=== PATIENT | female | born 1965 | race Caucasian/White ===

== ENCOUNTER 2022-12-13 18:49 | Inpatient (IN) | payer MEDICAID ==
[~2022-12-13] VITALS: Ht 162.6 cm; Wt 44.5 kg
[2022-12-13] MEDS ORDERED: ALBUTEROL (0.083%) 2.5MG/3ML NEB HHN STA (18:57)
[2022-12-13] MEDS ORDERED: IPRATROPIUM BROMIDE (0.02%) 0.5MG/2.5ML NEB HHN STA (18:57)
[2022-12-13] MEDS ORDERED: SODIUM CHLORIDE 0.9% 1,000 ML IV ONE ×2 (19:00→19:15)
[2022-12-13] MEDS ORDERED: NOREPINEPHRINE 8MG/250ML PMX 250 ML IV ONE (19:45)
[2022-12-13] MEDS: NOREPINEPHRINE 8 MG in DEXT 5% WATER 242 ML IV NR (20:08)
[2022-12-13] MEDS ORDERED: LORAZEPAM 2MG/ML CPJ IV ONE (20:15)
[2022-12-13] MEDS ORDERED: PHENYLEPHRINE 100 MG in DEXT 5% WATER 240 ML IV STA ×2 (21:58→22:07)
[2022-12-13] MEDS ORDERED: VANCOMYCIN 1G PREMIX 200 ML IV SCH (22:00)
[2022-12-13] MEDS ORDERED: CEFTRIAXONE 1 G PREMIX 50 ML IV ONE (22:00)
[2022-12-13 23:24] LABS: CHLORIDE 112 mEq/L (98-107)
[2022-12-13 23:28] LABS: HEMATOCRIT. 35.8 % (36.0-48.0); HEMOGLOBIN. 11.4 g/dL (12.0-16.0); MEAN CORPUSCULAR HEMOGLOBIN 31.1 pg (28.0-32.0); MEAN CORPUSCULAR VOLUME 97.7 fL (81.0-99.0); MEAN PLATELET VOLUME 9.1 fl (7.4-10.4); PLATELET 312 x1000/uL (130-400); RED BLOOD CELL COUNT 3.66 mill/uL (4.2-5.4); RED CELL DISTRIBUTION WIDTH 14.3 % (11.6-14.6)
[2022-12-14] VITALS (57 sets, daily range): BP systolic 49–152; BP diastolic 20–102
[2022-12-14 00:02] LABS: HCG SCREEN NEGATIVE
[2022-12-14 02:09] LABS: PLATELET ESTIMATE NORMAL
[2022-12-14] MEDS ORDERED: IOHEXOL-300 100 ML BOTTLE ONE (03:31)
[2022-12-14] MEDS ORDERED: DOPAMINE 800MG/500ML PREMIX 500 ML IV PRN (05:00)
[2022-12-14] MEDS ORDERED: MIDAZOLAM HCL 100 MG in DEXT 5% WATER 80 ML IV NR (05:15)
[2022-12-14] MEDS ORDERED: SUCCINYLCHOLINE CHLORIDE 200MG/10ML IV NR (05:15)
[2022-12-14] MEDS ORDERED: EPINEPHRINE 0.1MG/ML (1:10,000) 10ML SYR IV NR (05:15)
[2022-12-14] MEDS ORDERED: ETOMIDATE 2MG/ML 10ML VIAL IV NR (05:15)
[2022-12-14] MEDS ORDERED: SODIUM BICARBONATE 8.4% 1 MEQ/ML 50ML SYR IV ONE ×2 (05:29→10:15)
[2022-12-14] MEDS ORDERED: SODIUM CHLORIDE 0.9% 1,000 ML IV NR (06:00)
[2022-12-14 06:18] LABS: BG BASE EXCESS -2.3 mmol/L (-2.0-2.0); BG CARBOXYHEMOGLOBIN 0.4 % (0.5-1.5); BG DEOXYHEMOGLOBIN 19.8 % (0.0-5.0); BG FRACTION INSPIRED OXYGEN 60; BG HCO3 ACT 22.8 mmol/L (22.0-26.0); BG METHEMOGLOBIN 0.6 % (0.0-1.5); BG OXYHEMOGLOBIN 79.2 % (94.0-97.0); BG PCO2 40.5 mmHg (35.0-45.0); BG PH 7.368 (7.350-7.450); BG PO2 45.4 mmHg (75.0-100.0); BG SAMPLE SITE LEFT FEMORAL; BG TOTAL HEMOGLOBIN 12.8 g/dL (12.0-18.0); BG VENT MODE VENT - AC
[2022-12-14] MEDS ORDERED: ACETAMINOPHEN 650MG/20.3ML UDC GT PRN ×2 (07:00)
[2022-12-14] MEDS ORDERED: ACETAMINOPHEN 325MG TABLET PO PRN ×2 (07:00)
[2022-12-14] MEDS ORDERED: CLONIDINE 0.1MG TABLET PO PRN (07:00)
[2022-12-14] MEDS ORDERED: IPRATROPIUM/ALBUTEROL 0.5-3(2.5)MG/3ML NEB HHN PRN (07:00)
[2022-12-14] MEDS ORDERED: ONDANSETRON HCL 4MG/2ML INJ IV PRN ×2 (07:00→16:30)
[2022-12-14 07:23] LABS: HEMOGLOBIN. 12.1 g/dL (12.0-16.0); MEAN CORPUSCULAR HEMOGLOBIN 31.3 pg (28.0-32.0); MEAN CORPUSCULAR VOLUME 98.1 fL (81.0-99.0); MEAN PLATELET VOLUME 9.2 fl (7.4-10.4); PLATELET 284 x1000/uL (130-400); RED BLOOD CELL COUNT 3.88 mill/uL (4.2-5.4); RED CELL DISTRIBUTION WIDTH 14.1 % (11.6-14.6)
[2022-12-14] MEDS ORDERED: SUCCINYLCHOLINE CHLORIDE 200MG/10ML IV ONE (07:27)
[2022-12-14] MEDS ORDERED: ETOMIDATE 2MG/ML 10ML VIAL IV ONE (07:27)
[2022-12-14 07:33] LABS: CHLORIDE 108 mEq/L (98-107)
[2022-12-14 07:45] LABS: PHOSPHORUS 7.4 mg/dL (2.5-4.9)
[2022-12-14] MEDS ORDERED: MIDAZOLAM HCL 100 MG in SODIUM CHLORIDE 0.9% 80 ML IV PRN (08:30)
[2022-12-14] MEDS ORDERED: FENTANYL CITRATE/PF 2,500 MCG in SODIUM CHLORIDE 0.9% 200 ML IV PRN (08:30)
[2022-12-14 09:05] LABS: BG CARBOXYHEMOGLOBIN 0.7 % (0.5-1.5); BG DEOXYHEMOGLOBIN 5.2 % (0.0-5.0); BG FRACTION INSPIRED OXYGEN 100; BG HCO3 ACT 12.6 mmol/L (22.0-26.0); BG METHEMOGLOBIN 0.7 % (0.0-1.5); BG OXYGEN SATURATION 94.7 % (92.0-98.5); BG OXYHEMOGLOBIN 93.4 % (94.0-97.0); BG PCO2 23.4 mmHg (35.0-45.0); BG PO2 70.8 mmHg (75.0-100.0); BG SAMPLE SITE LEFT FEMORAL; BG TOTAL HEMOGLOBIN 13.3 g/dL (12.0-18.0); BG VENT MODE VENT - AC
[2022-12-14] MEDS: NOREPINEPHRINE 8 MG in DEXT 5% WATER 242 ML IV NR ×2 (09:25→11:43)
[2022-12-14] MEDS: VASOPRESSIN 20 UNIT in SODIUM CHLORIDE 0.9% 99 ML IV PRN ×2 (10:39→18:18)
[2022-12-14] MEDS: DOPAMINE 400MG/250ML PREMIX 250 ML IV PRN (10:42)
[2022-12-14] MEDS ORDERED: SODIUM CHLORIDE 0.9% 1,000 ML IV ONE (11:00)
[2022-12-14 11:31] LABS: PLATELET ESTIMATE NORMAL
[2022-12-14] MEDS: SODIUM BICARBONATE 100 MEQ in SODIUM CHLORIDE 0.45% 1,000 ML IV SCH ×2 (11:46→23:33)
[2022-12-14] MEDS: PIPERACILLIN/TAZOBACTAM 3.375 G in DEXTROSE 5% WATER 50 ML IV SCH ×3 (11:59→22:17)
[2022-12-14] MEDS ORDERED: DIATR MEGLU/DIATRIZOATE SOLN 120ML ONE (12:19)
[2022-12-14] MEDS: PHENYLEPHRINE 100 MG in DEXT 5% WATER 240 ML IV PRN ×2 (12:48→23:35)
[2022-12-14 13:25] LABS: INR 1.3; PROTHROMBIN TIME 13.5 sec (9.6-11.0)
[2022-12-14] MEDS ORDERED: SIMETHICONE 40 MG/0.6 ML 15ML ONE (13:48)
[2022-12-14] MEDS ORDERED: ONDANSETRON HCL 4MG/2ML INJ ONE (13:52)
[2022-12-14] MEDS ORDERED: DEXAMETHASONE 4MG/ML 1ML VIAL ONE (13:52)
[2022-12-14] MEDS ORDERED: ROCURONIUM BROMIDE 10MG/ML VIAL 5ML IV ONE ×2 (13:53→16:23)
[2022-12-14] MEDS: NOREPINEPHRINE 32 MG in DEXT 5% WATER 218 ML IV PRN (14:00)
[2022-12-14] MEDS: HYDROCORTISONE SOD SUCCINATE 100 MG/2 ML VIAL IV SCH ×2 (15:05→22:16)
[2022-12-14] MEDS ORDERED: MORPHINE SULFATE 4 MG/ML CPJ (NOT FOR IM USE) IV PRN (16:30)
[2022-12-14] MEDS ORDERED: MORPHINE SULFATE 2 MG/ML CPJ (NOT FOR IM USE) IV PRN (16:30)
[2022-12-14] MEDS ORDERED: DEXT 5%/0.45% NACL KCL 20MEQ/L 1,000 ML IV SCH (16:30)
[2022-12-14] MEDS ORDERED: PHENYLEPHRINE HCL 10 MG/ML 1ML (IV VIAL) IV ONE (16:49)
[2022-12-14] MEDS: PANTOPRAZOLE SODIUM 40 MG/VIAL IV SCH (18:24)
[2022-12-14] MEDS: FAMOTIDINE 20MG/2ML VIAL IV SCH (20:41)
[2022-12-14 21:27] LABS: BG BASE EXCESS -5.3 mmol/L (-2.0-2.0); BG CARBOXYHEMOGLOBIN 0.4 % (0.5-1.5); BG DEOXYHEMOGLOBIN 0.4 % (0.0-5.0); BG FRACTION INSPIRED OXYGEN 100; BG HCO3 ACT 15.4 mmol/L (22.0-26.0); BG OXYGEN SATURATION 99.6 % (92.0-98.5); BG OXYHEMOGLOBIN 98.2 % (94.0-97.0); BG PCO2 20.4 mmHg (35.0-45.0); BG PH 7.496 (7.350-7.450); BG PO2 185.8 mmHg (75.0-100.0); BG SAMPLE SITE RIGHT FEMORAL; BG TOTAL HEMOGLOBIN 14.3 g/dL (12.0-18.0); BG TOTAL RESPIRATORY RATE 37 b/min; BG VENT MODE VENT - AC
[2022-12-15] VITALS (84 sets, daily range): BP systolic 39–132; BP diastolic 14–99
[2022-12-15] MEDS: NOREPINEPHRINE 32 MG in DEXT 5% WATER 218 ML IV PRN ×2 (00:14→11:16)
[2022-12-15] MEDS: DOPAMINE 400MG/250ML PREMIX 250 ML IV PRN (01:49)
[2022-12-15 05:32] LABS: HEMATOCRIT. 45.5 % (36.0-48.0); MEAN CORPUSCULAR HEMOGLOBIN 30.8 pg (28.0-32.0); MEAN CORPUSCULAR VOLUME 93.2 fL (81.0-99.0); MEAN PLATELET VOLUME 9.8 fl (7.4-10.4); PLATELET 239 x1000/uL (130-400); RED BLOOD CELL COUNT 4.88 mill/uL (4.2-5.4); RED CELL DISTRIBUTION WIDTH 14.1 % (11.6-14.6)
[2022-12-15 05:35] LABS: CHLORIDE 99 mEq/L (98-107)
[2022-12-15] MEDS: HYDROCORTISONE SOD SUCCINATE 100 MG/2 ML VIAL IV SCH ×2 (06:13→14:17)
[2022-12-15] MEDS: PIPERACILLIN/TAZOBACTAM 3.375 G in DEXTROSE 5% WATER 50 ML IV SCH ×2 (06:13→14:17)
[2022-12-15] MEDS: VASOPRESSIN 20 UNIT in SODIUM CHLORIDE 0.9% 99 ML IV PRN ×2 (06:16→18:21)
[2022-12-15] MEDS ORDERED: FENTANYL 2500MCG/250ML PMX 250 ML IV PRN (08:00)
[2022-12-15] MEDS ORDERED: SODIUM BICARBONATE 8.4% 1 MEQ/ML 50ML SYR IV ONE (08:33)
[2022-12-15] MEDS ORDERED: EPINEPHRINE 0.1MG/ML (1:10,000) 10ML SYR ONE (08:33)
[2022-12-15] MEDS ORDERED: DEXTROSE 50% WATER 50ML SYRINGE IV ONE (08:33)
[2022-12-15] MEDS: FAMOTIDINE 20MG/2ML VIAL IV SCH (09:12)
[2022-12-15] MEDS: PANTOPRAZOLE SODIUM 40 MG/VIAL IV SCH (09:12)
[2022-12-15] MEDS: SODIUM BICARBONATE 100 MEQ in SODIUM CHLORIDE 0.45% 1,000 ML IV SCH (09:13)
[2022-12-15 09:37] LABS: BG BASE EXCESS -0.8 mmol/L (-2.0-2.0); BG CARBOXYHEMOGLOBIN 0.3 % (0.5-1.5); BG DEOXYHEMOGLOBIN 0.6 % (0.0-5.0); BG FRACTION INSPIRED OXYGEN 80; BG HCO3 ACT 18.8 mmol/L (22.0-26.0); BG METHEMOGLOBIN 0.7 % (0.0-1.5); BG OXYGEN SATURATION 99.4 % (92.0-98.5); BG OXYHEMOGLOBIN 98.4 % (94.0-97.0); BG PCO2 20.6 mmHg (35.0-45.0); BG PH 7.578 (7.350-7.450); BG SAMPLE SITE RIGHT FEMORAL; BG TOTAL HEMOGLOBIN 14.1 g/dL (12.0-18.0); BG VENT MODE VENT - AC
[2022-12-15 10:43] LABS: PLATELET ESTIMATE NORMAL
[2022-12-15] MEDS: PHENYLEPHRINE 100 MG in DEXT 5% WATER 240 ML IV PRN (11:16)
[2022-12-15] MEDS ORDERED: ENOXAPARIN 30MG/0.3ML SYR SUBCUT SCH (14:00)
[2022-12-15] MEDS ORDERED: SODIUM CHLORIDE 0.9% 500 ML IV ONE (16:00)
[2022-12-15 17:41] LABS: CLARITY URINE CLEAR (CLEAR); COLOR URINE YELLOW (YELLOW); KETONES URINE TRACE (NEGATIVE); LEUKOCYTE ESTERASE URINE NEGATIVE (NEGATIVE); NITRITE URINE NEGATIVE (NEGATIVE); OCCULT BLOOD URINE 3+ (NEGATIVE); PH URINE >=9.0 (4.5-8.0); PROTEIN URINE 2+ (NEGATIVE); SPECIFIC GRAVITY URINE 1.018 (1.005-1.030)
[2022-12-15 18:28] LABS: PHOSPHORUS 2.8 mg/dL (2.5-4.9)
[2022-12-15] MEDS ORDERED: EPINEPHRINE 10 MG in SODIUM CHLORIDE 0.9% 240 ML IV PRN (20:15)
[2022-12-15] MEDS ORDERED: OSELTAMIVIR 75MG CAPSULE PO SCH (21:00)
[2022-12-15] MEDS ORDERED: SODIUM CHLORIDE 0.9% 1,000 ML IV SCH (21:00)
[2022-12-15] MEDS ORDERED: ERGO1250 PO (21:14)
[2022-12-15] MEDS ORDERED: NALOXONE HCL 0.4MG/ML VIAL IV PRN (21:15)
[2022-12-15] MEDS ORDERED: ASCO500T20 PO ×2 (21:15→21:16)
[2022-12-15] MEDS ORDERED: POTA10CA42 PO (21:15)
[2022-12-15] MEDS ORDERED: DOCU-150 PO (21:17)
[2022-12-15] MEDS ORDERED: HALO10TA13 PO (21:18)
[2022-12-15] MEDS ORDERED: BENZ2TAB7 PO (21:19)
[2022-12-15] MEDS ORDERED: DIPH50CA38 PO (21:20)
[2022-12-15] MEDS ORDERED: METF-873 PO (21:20)
[2022-12-15] MEDS ORDERED: ACET-2708 PO (21:21)
== END 2022-12-15 21:25 | DRG 710 ==
LOC: ER 18:49 → MICUSO 23:35 → EDBD 23:35 → MICUSO 12-14 11:00
PROVIDERS: ADMIT Internal Medicine; ATTEND Internal Medicine
PROC: 02HV33Z Insertion of Infusion Device into Superior Vena Cava, Percutaneous Approach (ICD-10-PCS; 2022-12-13)
PROC: B548ZZA Ultrasonography of Superior Vena Cava, Guidance (ICD-10-PCS; 2022-12-13)
PROC: 5A1945Z Respiratory Ventilation, 24-96 Consecutive Hours (ICD-10-PCS; principal; 2022-12-14)
PROC: 0D1M0Z4 Bypass Descending Colon to Cutaneous, Open Approach (ICD-10-PCS; 2022-12-14)
PROC: 0BH17EZ Insertion of Endotracheal Airway into Trachea, Via Natural or Artificial Opening (ICD-10-PCS; 2022-12-14)
PROC: 0DTN0ZZ Resection of Sigmoid Colon, Open Approach (ICD-10-PCS; 2022-12-14)
PROC: 5A12012 Performance of Cardiac Output, Single, Manual (ICD-10-PCS; 2022-12-15)
DX: A41.9 Sepsis, unspecified organism (principal); J96.01 Acute respiratory failure with hypoxia; N17.0 Acute kidney failure with tubular necrosis; R65.21 Severe sepsis with septic shock; G92.8 Other toxic encephalopathy; K56.2 Volvulus; I21.4 Non-ST elevation (NSTEMI) myocardial infarction; K59.39 Other megacolon; Z66 Do not resuscitate; Z20.822 Contact with and (suspected) exposure to COVID-19; E87.20 Acidosis, unspecified; E83.41 Hypermagnesemia; G80.9 Cerebral palsy, unspecified; D64.9 Anemia, unspecified; K92.0 Hematemesis; E88.09 Other disorders of plasma-protein metabolism, not elsewhere classified; E11.9 Type 2 diabetes mellitus without complications; E83.39 Other disorders of phosphorus metabolism; E83.51 Hypocalcemia; K56.49 Other impaction of intestine; Z74.01 Bed confinement status; Z78.1 Physical restraint status
CPT/HCPCS: 31500; 36415; 36600; 71045; 74018; 74176; 74177; 80048; 80053; 81003; 82375; 82805; 82962; 83605; 83735; 83880; 84100; 84145; 84484; 84703; 85025; 87426; 87804; 88309; 92950; 93005; 93306; 94002; 94003; 94640; 99285; C1893; C9113; J0330; J0696; J1100; J1265; J1720; J2060; J2250; J2370; J2405; J2543; J3010; J3490; J7030; J7050; J7060; Q9963; Q9967; A4315